=== PATIENT | female | born 1990 | race Caucasian/White ===

== ENCOUNTER 2020-10-16 08:43 | Outpatient (REF) | payer MEDICAID, SELFPAY ==
[2020-10-16 16:13] LABS: CT PCR NOT DETECTED (Not Detect.); NG PCR NOT DETECTED (Not Detect.)
== END 2020-10-16 08:44 | disposition home or self-care (01) ==
LOC: HO.LAB 08:43
PROVIDERS: Visit Provider Obstetrics & Gynecology
DX: Z11.3 Encounter for screening for infections with a predominantly sexual mode of transmission (principal); R10.2 Pelvic and perineal pain; N39.0 Urinary tract infection, site not specified
CPT/HCPCS: 81025; 87086; 87147; 87491; 87591; 99212

== ENCOUNTER 2020-10-24 09:11 | Outpatient (REF) | payer OTHER, SELFPAY | END 2020-10-24 09:12 | disposition home or self-care (01) | LOC: HO.LAB 09:11 | PROVIDERS: PCP Internal Medicine; Visit Provider Obstetrics & Gynecology | DX: N39.0 Urinary tract infection, site not specified (principal) | CPT/HCPCS: 87086 ==

== ENCOUNTER 2020-11-04 12:51 | Outpatient (REF) | payer OTHER, SELFPAY ==
--- NOTE | ~2020-11-04 | US_ITS ---
EXAMINATION: PELVIC ULTRASOUND CLINICAL INFORMATION: Pain COMPARISON: None TECHNIQUE: Transabdominal and transvaginal pelvic ultrasound was performed. Transvaginal exam was performed for better visualization of the uterus and ovaries. FINDINGS: The uterus is anteverted and measures 7.8 x 3.9 x 4.5 cm in dimension. No focal uterine lesion is seen. There is an IUD in the uterus in satisfactory position. Endometrial thickness is normal measuring 0.4 cm. There are nabothian cysts in the cervix. The ovaries are normal-appearing. The right ovary measures 4 x 1.9 x 3.3 cm. The left ovary measures 3.9 x 1.8 x 2.9 cm. There is a small amount of fluid in the pelvis. US/US pelvic and transvaginal IMPRESSION: IUD in the uterus in satisfactory position. Otherwise unremarkable exam.
== END 2020-11-04 12:52 | disposition home or self-care (01) ==
LOC: HO.US 12:51
PROVIDERS: Visit Provider Obstetrics & Gynecology
DX: R10.2 Pelvic and perineal pain (principal)
CPT/HCPCS: 76830; 76856

== ENCOUNTER → 2020-11-11 14:43 | Outpatient (BNVA) | payer OTHER, SELFPAY | PROVIDERS: PCP Internal Medicine; Visit Provider Obstetrics & Gynecology ==

== ENCOUNTER 2021-06-12 10:29 | Outpatient (REF) | payer OTHER, SELFPAY ==
[2021-06-12 10:49] LABS: MANUAL DIFF FLAG NO
[2021-06-12 11:28] LABS: Basophils Percent Auto 0.5 % (0-2); Eosinophils Absolute Auto 0.1 X10*3/uL (0.0-0.4); Eosinophils Percent Auto 2.1 % (0-4); Hematocrit 41.2 % (37.0-47.0); Hemoglobin 13.8 g/dl (12.0-16.0); Imm Gran Abs Auto 0.02 X10*3/uL (0.00-0.03); Imm Gran Pct Auto 0.3 % (0.0-0.4); Lymphocytes Percent Auto 35.1 % (20-40); Mean Corpuscular HGB Conc 33.5 g/dl (31.0-35.0); Mean Corpuscular Hemoglobin 29.7 pg (27.0-33.0); Mean Corpuscular Volume 88.8 fL (80.0-98.0); Mean Platelet Volume 9.7 fL (9.4-12.3); Monocytes Absolute Auto 0.3 X10*3/uL (0.1-1.2); Monocytes Percent Auto 5.4 % (2-11); Neutrophils Absolute Auto 3.3 x10*3/uL (2.0-8.3); Neutrophils Percent Auto 56.6 % (45-73); Platelet Count 245 X10*3/uL (160-400); Red Blood Count 4.64 X10*6/uL (4.20-5.50); Red Cell Distribution Width 11.9 % (11.0-16.0); White Blood Count 5.8 X10*3/uL (4.8-10.8)
[2021-06-12 11:48] LABS: Alanine Aminotransferase 29 U/L (0-31); Albumin Level 4.3 g/dL (3.5-5.0); Alkaline Phosphatase 55 U/L (39-117); Anion Gap 12 (12-20); Aspartate Amino Transferase 24 U/L (5-31); Bilirubin Total 0.7 mg/dL (0.0-1.0); Blood Urea Nitrogen 11 mg/dL (9-16); Calcium 9.8 mg/dL (8.4-10.2); Carbon Dioxide 26 mmol/L (22-29); Chloride 105 mmol/L (96-108); Cholesterol 180 mg/dL; Estimated Glomerular Filt Rate > 60; Glucose Random 86 mg/dL (60-115); HDL Cholesterol 73 mg/dL; LDL Cholesterol Calculated 93 mg/dl; Potassium 4.4 mmol/L (3.3-5.1); Sodium 139 mmol/L (135-145); Total Protein 6.9 g/dL (6.5-8.0); Triglycerides 72 mg/dL
[2021-06-12 12:10] LABS: Ferritin 23 ng/mL (10-122); Thyroid Stimulating Hormone 1.31 uIU/mL (0.32-4.0)
== END 2021-06-12 10:30 | disposition home or self-care (01) ==
LOC: HO.LAB 10:29
PROVIDERS: PCP Internal Medicine; Visit Provider Internal Medicine
DX: Z00.00 Encounter for general adult medical examination without abnormal findings (principal); Z13.31 Encounter for screening for depression; L65.0 Telogen effluvium; R53.83 Other fatigue
CPT/HCPCS: 36415; 80053; 80061; 82728; 84443; 85025

== ENCOUNTER 2023-01-13 11:50 | Outpatient (AMB) | payer OTHER, SELFPAY ==
--- NOTE | 2023-01-13 11:52 | MHC.OFFVIS ---
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 Required: No Information Interpreted: non-clinical & clinical Home Health Care Provider: Home Health Care Provider Present (Tami Francisco UYEN) Accompanied by: Self / Same As Patient Allergies No Known Allergies [No Known Allergies*] Allergy (Unverified 01/13/23 12:01) Is last menstrual period known: Yes Last menstrual period: 12/15/22 HPI HPI Comments History of Present Illness Details Presenting requesting ParaGard IUD removal PFSH Surgical History Hx of section Family History Mother HTN (hypertension) Father Heart attack Social History Alcohol intake: current Patient Tobacco Use Status: Current everyday Tobacco user Tobacco use type: Cigarette Cigarettes Per Day: 3 Years Smoked: 4 Female Reproductive History Menstrual Date of last menstrual period: 12/15/22 control method: copper IUCD Review of Systems Const All systems reviewed & are unremarkable except as noted in HPI and below Physical Exam Vital Signs: Last Vital Signs BP 118/76 01/13/23 11:58 BMI result Body Mass Index 25.8 General: Yes no CVA tenderness External Female Exam: normal external appearance and normal appearance of the urethra Speculum Exam - Vagina: normal appearance of the vagina, normal palpation, no lesions and no masses Speculum Exam - Cervix: normal appearance of the cervix, normal palpation, no lesions, no masses, nontender and Other cervical findings present (IUD thread in place) Bimanual exam- vagina & uterus: normal bimanual exam, normal palpation, uterine size normal, normal palpation, uterine shape normal, No Cervical tenderness present and non-tender Bimanual Exam- Adnexa, other: normal adnexae Back/Spine/Pelvis Back: no CVA tenderness Office Procedures IUD Insert/Removal Details Details: Counseling/Consent: After discussing with the patient the risks of the procedure including bleeding, infection, scar tissue formation, , possible injury to blood vessels or nerves, chronic arm pain, blood transfusion, and irregular unpredictable bleeding Alternative options were discussed with the patient including but not limited: Do nothing. The patient signed the consent and agreed with the plan; all questions answered. Urine test was done in the office and was negative Preop dx: Requesting ParaGard IUD removal Op: ParaGard IUD removal Post op dx: same EBL= 10 cc Procedure: The patient was put in the dorsal lithotomy position a speculum was inserted in the vagina the IUD thread identified. Using a Kelley clamp the thread was grasped and the IUD pulled out with no complications. The patient tolerated the procedure well and was advised to use a different method for contraception. Discharge instructions: Instructions were given to the pt to call if temp>100.4, abdominal pain heavy vaginal bleeding, n/v occur. The patient verbalized understanding and all questions answered. This note was generated with a voice recognition program. Some errors may have been overlooked during the review of this note. Sometimes these errors may affect the content or meaning of a given sentence. 94390-LRW Removal Procedure code (CPT) selection complete Results AMB Test Urine AMB Test Urine Negative Last Edit by Tami Francisco CMA on 01/13/23 12:08 Assessment & Plan Assessment & Plan (1) Encounter for IUD removal: Code(s): Z30.432 - Encounter for removal of intrauterine contraceptive device Plan: ParaGard IUD removed, see procedure note. Offered the patient different options of control, the patient is not interested at this point, would not mind if she gets . Orders: Orders AMB HCG Urine Test Today Z32.02 - Encounter for test, result negative Medications: Discontinued nitrofurantoin monohyd/m-cryst 100 mg (Macrobid) Discontinued Reason: Patient no longer taking 100 mg PO BID 5 days 10 caps 0RF Coding Level of Care Code Procedure Only Diagnoses Encounter for IUD removal Z30.432 CPT Codes Details - CPT: 54850-ZLO Removal ([id number])
[2023-01-13 11:58] VITALS: BP 118/76; BMI 25.8
== END 2023-01-13 12:21 | disposition home or self-care (01) ==
PROVIDERS: PCP Internal Medicine; Visit Provider Obstetrics & Gynecology
DX: Z30.432 Encounter for removal of intrauterine contraceptive device (principal); Z32.02 Encounter for pregnancy test, result negative
CPT/HCPCS: 58301

== ENCOUNTER → 2023-01-13 11:50 | Outpatient (BNVA) | payer OTHER, SELFPAY | PROVIDERS: PCP Internal Medicine; Visit Provider Obstetrics & Gynecology | DX: Z30.432 Encounter for removal of intrauterine contraceptive device (principal) | CPT/HCPCS: 58301; 81025 ==

== ENCOUNTER 2023-01-27 12:20 | Outpatient (REF) | payer OTHER, SELFPAY | END 2023-01-27 12:21 | disposition home or self-care (01) | LOC: HO.XRAY 12:20 | PROVIDERS: PCP Internal Medicine; Visit Provider Internal Medicine | DX: R09.1 Pleurisy (principal) | CPT/HCPCS: 71046 ==